=== PATIENT | female | born 1985 | race Two or more races ===

== ENCOUNTER → 2019-08-04 | Emergency (ER) | payer OTHER ==
[~2019-08-04] VITALS: Ht 160 cm; Wt 54.4 kg
[~2019-08-04] MED LIST: HYDROcodone-ACET 5/325MG TAB PO ONE
[2019-08-04 03:19] VITALS: BP 121/60
== END | disposition home or self-care (01) ==
LOC: ER 00:03
DX: F19.10 Other psychoactive substance abuse, uncomplicated (principal); T14.8XXA Other injury of unspecified body region, initial encounter; V49.9XXA Car occupant (driver) (passenger) injured in unspecified traffic accident, initial encounter; Y93.89 Activity, other specified; Y92.89 Other specified places as the place of occurrence of the external cause; Y99.8 Other external cause status
CPT/HCPCS: 70450; 72125; 73610; 73630